=== PATIENT | female | born 1935 | race Caucasian/White ===

== ENCOUNTER 2019-01-09 11:22 | Emergency (ER) | payer MEDICAID ==
[2019-01-09 12:37] LABS: ADD MAN DIFF? NO
[2019-01-09] MEDS: ONDANSETRON 4 MG INJ IV (12:37)
[2019-01-09] MEDS: SOD CHLORIDE 0.9% 1,000 ML IV (12:38)
[2019-01-09] MEDS: morphine 4 MG/ML VIAL IV (12:38)
[2019-01-09 12:45] LABS: BASOPHILS % 0.4 % (0.0-2.0); EOSINOPHILS # 0.2 10^3/ul (0.0-0.5); EOSINOPHILS % 2.8 % (0.0-7.0); HEMOGLOBIN 11.6 g/dl (12.0-16.0); LYMPHOCYTES # 2.1 10^3/ul (0.8-2.9); LYMPHOCYTES % 24.2 % (15.0-51.0); MEAN CORPUSCULAR HEMOGLOBIN 28.5 pg (29.0-33.0); MEAN CORPUSCULAR HGB CONC 32.2 g/dl (32.0-37.0); MEAN CORPUSCULAR VOLUME 88.5 fl (82.0-101.0); MONOCYTE # 0.5 10^3/ul (0.3-0.9); MONOCYTES % 6.2 % (0.0-11.0); NEUTROPHIL # 5.7 10^3/ul (1.6-7.5); NEUTROPHILS % 65.9 % (39.0-77.0); PLATELET COUNT 307 10^3/UL (140-415); RED BLOOD COUNT 4.07 10^6/ul (4.20-5.40)
[2019-01-09 12:45] LABS: WHITE BLOOD COUNT 8.6 10^3/ul (4.8-10.8)
[2019-01-09 12:56] LABS: PROTIME 12.3 Sec (11.9-14.9)
[2019-01-09 12:58] LABS: ALANINE AMINOTRANSFERASE 11 IU/L (13-69); ALBUMIN 4.4 g/dl (3.3-4.9); ALKALINE PHOSPHATASE 84 IU/L (42-121); ANION GAP 10 (5-13); ASPARTATE AMINO TRANSFERASE 21 IU/L (15-46); BILIRUBIN,INDIRECT 0.1 mg/dl (0-1.1); BILIRUBIN,TOTAL 0.1 mg/dl (0.2-1.3); BLOOD UREA NITROGEN 20 mg/dl (7-20); CALCIUM 9.1 mg/dl (8.4-10.2); CARBON DIOXIDE 27 mmol/L (21-31); CHLORIDE 107 mmol/L (97-110); CREATININE 0.73 mg/dl (0.44-1.00); GLUCOSE 247 mg/dl (70-220); POTASSIUM 3.3 mmol/L (3.5-5.1); SODIUM 144 mmol/L (135-144); TOTAL PROTEIN 8.3 g/dl (6.1-8.1)
[2019-01-09] MEDS: SOD CHLORIDE 0.9% 100 ML (13:42)
[2019-01-09] MEDS: IOHEXOL 100 ML (13:46)
== END 2019-01-09 15:22 | disposition home or self-care (01) ==
LOC: E/R 11:22
DX: S22.41XA Multiple fractures of ribs, right side, initial encounter for closed fracture (principal); S80.02XA Contusion of left knee, initial encounter; I10 Essential (primary) hypertension; W18.30XA Fall on same level, unspecified, initial encounter; Y92.9 Unspecified place or not applicable
CPT/HCPCS: 36415; 70450; 71045; 71260; 73562; 74177; 80048; 80076; 85025; 85610; 85730; 96374; 96375; 99285-25